=== PATIENT | female | born 1975 | race Caucasian/White ===

== ENCOUNTER 2019-06-17 12:02 | Outpatient (CLI) | payer BC, SELFPAY ==
--- NOTE | ~2019-06-17 | MMUS_ITS ---
EXAMINATION: MM diagnostic mammo unilat LT, US breast LT limited HISTORY: Possible left breast mass on screening mammogram TECHNIQUE: Additional 3-D tomosynthesis images of the left breast were performed and synthetic 2-D im ages were generated. CAD analysis was submitted and interpreted. High resolution limited left breast ultrasound was performed. COMPARISON: 04/29/2019, 09/05/2016 FINDINGS: MAMMOGRAPHIC FINDINGS: There is a 7 mm oval, obscured, low density mass in the posterior third of the lower-outer breast at the 4:00 location 8 cm from the nipple. No associated architectural distortion or suspicious calcific ation are identified. ULTRASOUND: There is a 9 mm x 4 mm cyst at the 4:00 location 4 cm from the nipple corresponding to the mammograph ic finding in question. No suspicious cystic or solid mass is identified. IMPRESSION: 1. No mammographic or sonographic evidence of malignancy. 2. Recommend routine screening mammography in one year. BI-RADS Category 2: Benign finding(s). Reviewed, dictated and finalized at location A. GER RENTAL IMPRESSION: 1. No mammographic or sonographic evidence of malignancy. 2. Recommend routine screening mammography in one year. BI-RADS Category 2: Benign finding(s).
== END 2019-06-17 12:03 | disposition home or self-care (01) ==
PROVIDERS: Visit Provider Obstetrics & Gynecology Gynecology
DX: R92.8 Other abnormal and inconclusive findings on diagnostic imaging of breast (principal)
CPT/HCPCS: 76642; 77065

== ENCOUNTER 2020-07-21 08:05 | Outpatient (CLI) | payer BC, SELFPAY ==
--- NOTE | ~2020-07-21 | MM_ITS ---
EXAMINATION: MM screening [facility] BI w sammy HISTORY: Screening mammogram TECHNIQUE: Craniocaudal and mediolateral oblique 3-D tomosynthesis images were obtained and synthetic 2-D images were generated. CAD analysis was submitted and interpreted. COMPARISON: 06/17/2019, 04/29/2019, 03/16/2017, 09/05/2016 BREAST PARENCHYMAL COMPOSITION: The breasts are heterogeneously dense, which may obscure small masses . FINDINGS: There is no evidence of suspicious mass, calcification, or architectural distortion to sugg est malignancy in either breast. There has been no suspicious interval change. IMPRESSION: 1. No mammographic evidence of malignancy. 2. Recommend routine screening mammography in one year. BI-RADS Category 1: Negative Reviewed, dictated and finalized at location A.
== END 2020-07-21 08:06 | disposition home or self-care (01) ==
PROVIDERS: PCP Obstetrics & Gynecology Gynecology; Visit Provider Obstetrics & Gynecology Gynecology
DX: Z12.31 Encounter for screening mammogram for malignant neoplasm of breast (principal)
CPT/HCPCS: 77063; 77067

== ENCOUNTER 2022-05-14 18:10 | Emergency (ER) | payer BC, SELFPAY ==
--- NOTE | ~2022-05-14 | CT_ITS ---
EXAMINATION: CT brain wo con, CT facial & cervical spine wo DATE: 05/14/2022 19:30 INDICATION: Fall with head injury and laceration to the left eyebrow TECHNIQUE: 1. Computed tomography (CT) of the head was performed without intravenous contrast. Sagittal and melissa nal reconstructions were obtained. The mA was adjusted according to patient size. Iterative reconstru ction technique was employed. The dose-length product was 605.33 mGy-cm. 2. CT of the maxillofacial bones and cervical spine was performed without intravenous contrast. Sagit raysa and coronal reconstructions were obtained. Automated exposure control and iterative reconstructio n technique were employed. The dose-length product was 394.5 mGy-cm. COMPARISON: None. FINDINGS: Head CT: No calvarial fracture. No acute intracranial hemorrhage, acute infarction or abnormal extra axial flu id collection. Ventricles are normal and symmetric. No mass/mass effect. Maxillofacial CT: Mild left supraorbital soft tissue swelling with deep laceration along the left supraorbital rim. Orb its appear otherwise normal. No post septal inflammatory stranding. Normal alignment at the temporoma ndibular joints. No maxillofacial fractures. Specifically the mandible, nasal bones, midline nasal se ptum, zygomatic arches, pterygoid plates and piña of the orbits and paranasal sinuses are all intact . Large mucous retention cyst in the left maxillary sinus. Bilateral mastoid air cells and middle ear cavities are clear. Cervical spine CT: Mild cervicothoracic levocurvature. Straightening of the normal cervical lordosis which is likely pos itional given the presence of a cervical collar. Vertebral body heights are normal. No fracture. Mode rate disc height loss at C5-C6 with small posterior disc osteophyte complex and moderate bilateral un covertebral osteoarthritis which results in mild central canal and mild bilateral neural foraminal st enosis. Remaining disc spaces are normal. Minimal to mild cervical facet osteoarthritis. No other fernanda ral foraminal or central canal stenosis. Multinodular goiter with multiple subcentimeter bilateral th yroid nodules. Cervical soft tissues are otherwise unremarkable. Visualized apices of lungs are clear . IMPRESSION: 1. Normal brain. 2. Deep laceration along the left supraorbital rim. Left orbit is otherwise normal with no calvarial or maxillofacial fractures. 3. Cervical spondylosis moderate at C5-C6, otherwise minimal with no acute osseous abnormality 4. Multinodular goiter. Reviewed, dictated and finalized at location A. 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 Normal brain. 2. Deep laceration along the left supraorbital rim. Left orbit is otherwise nor mal with no calvarial or maxillofacial fractures. 3. Cervical spondylosis moderate at C5-C6, otherwise minimal with no acute osse ous abnormality 4. Multinodular goiter.
[2022-05-14 18:10] VITALS: BP 148/97; PULSE 104; RESP 20; TEMP 37; O2SAT 96
--- NOTE | 2022-05-14 19:16 | ED.GENADULT ---
HPI - General Adult General Chief complaint: Head Injury <Yousif Oconnell MD - Last Filed: 05/15/22 06:18> Stated complaint: head injury/laceration <Yousif Oconnell MD - Last Filed: 05/15/22 06:18> Time Seen by Provider: 05/14/22 18:56 <Yousif Oconnell MD - Last Filed: 05/15/22 06:18> History of Present Illness HPI narrative: 46-year-old female presenting to the emergency department for evaluation of a facial injury. Patient states she was playing soccer when she went to head the ball and came in contact with another player resulting in a laceration above her left eyelid. Patient denies any loss of consciousness. Patient denies any change in vision of the left eye. Injury happened approximately 1 hour prior to arrival. Patient does report some posterior neck pain. Patient denies any associated numbness or weakness. Patient denies any other pain or injury. <Yousif Oconnell MD - Last Filed: 05/15/22 06:18> Related Data Allergies/adverse reactions: Allergies Allergy/AdvReac Type Severity Reaction Status Date / Time Penicillins Allergy Severe Hives / Verified 05/13/12 11:03 Red Face <Yousif Oconnell MD - Last Filed: 05/15/22 06:18> Review of Systems Review of Systems: CONSTITUTIONAL: Denies fever, chills, or sweats. EYES: See HPI ENT: Denies rhinorrhea, congestion, sore throat, or otalgia. CARDIOVASCULAR: Denies chest pain, palpitations, or edema. RESPIRATORY: Denies cough or dyspnea. GASTROINTESTINAL: Denies abdominal pain, nausea, vomiting, or diarrhea. GENITOURINARY: Denies dysuria or hematuria. SKIN: See HPI MUSCULOSKELETAL: Denies back pain, joint pain, or myalgia. NEUROLOGIC: Denies headache, numbness, or weakness. <Yousif Oconnell MD - Last Filed: 05/15/22 06:18> Exam Narrative: APPEARANCE: Well appearing HEAD: Laceration over left eye EYES: PERRLA/EOMI, conjunctivae clear. Stellate laceration over left eye NOSE: Normal no drainage EARS:TMS clear with good light reflex. THROAT: Pharynx clear, no exudate. NECK: Supple. No adenopathy, no masses. Tenderness of the cervical spine. RESPIRATORY: Airway patent, respirations nonlabored. Clear to auscultation bilaterally, no rales, rhonchi, wheezing. CARDIOVASCULAR: Regular rate and rhythm without murmurs rubs or gallops. ABDOMINAL: Soft, nontender, nondistended, normal bowel sounds MUSCULOSKELETAL: Moves all extremities. Strength/ROM intact, No edema, No calf tenderness. NEURO: Alert. Cranial nerves II through XII intact. Grossly intact SKIN: Warm, dry. Normal Color <Yousif Oconnell MD - Last Filed: 05/15/22 06:18> Course Course Emergency Course: CT head, CT facial bones and cervical spine were ordered to rule out severe injury. No facial fractures, normal brain and normal cervical spine. Laceration was repaired by Jessica Morillo. Patient was updated on the results of the CTs and plan for treatment at home. Patient was started on a short course of antibiotic due to the depth of the laceration. Patient's tetanus was updated. All questions and concerns were addressed. Patient was well-appearing on discharge. Differential diagnosis that were considered but were ruled out by imaging include facial fracture, intracranial injury, cervical spine fracture, orbital fracture, orbital entrapment. <Yousif Oconnell MD - Last Filed: 05/15/22 06:18> Vital Signs Vital signs: Vital Signs Temperature 98.6 F 05/14/22 18:10 Pulse Rate 104 H 05/14/22 18:10 Respiratory Rate 20 05/14/22 18:10 Blood Pressure 148/97 H 05/14/22 18:10 Pulse Oximetry 96 05/14/22 18:10 Oxygen Delivery Room Air 05/14/22 18:10 Temperature 98.6 F 05/14/22 18:10 Pulse Rate 104 H 05/14/22 18:10 Respiratory Rate 20 05/14/22 18:10 Blood Pressure 148/97 H 05/14/22 18:10 Pulse Oximetry 96 05/14/22 18:10 Oxygen Delivery Room Air 05/14/22 18:10 <Yousif Oconnell MD - Last Filed: 05/15/22 06:18>
[2022-05-14] MEDS: HYDROcodone/acetaminophen (*CRX) 5-325 MG TABLET 1 TAB PO (19:40)
[2022-05-14] MEDS: TETANUS,DIPHTHERIA,AC PERTUSSIS ADULT (0.5 ML) BOOSTRIX IM (20:52)
[2022-05-14] MEDS: CLINDAMYCIN HCL 150 MG CAP PO (20:53)
== END 2022-05-14 21:00 | disposition home or self-care (01) ==
PROVIDERS: Emergency Provider Emergency Medicine; PCP Obstetrics & Gynecology Gynecology
DX: S01.112A Laceration without foreign body of left eyelid and periocular area, initial encounter (principal); S09.90XA Unspecified injury of head, initial encounter; Z23 Encounter for immunization; M47.812 Spondylosis without myelopathy or radiculopathy, cervical region; E04.2 Nontoxic multinodular goiter; W51.XXXA Accidental striking against or bumped into by another person, initial encounter; Y93.66 Activity, soccer
CPT/HCPCS: 12013; 70450; 70486; 72125; 90471; 90715; 99284; A9270; L0140

== ENCOUNTER 2022-11-20 15:08 | Outpatient (CLI) | payer BC, SELFPAY ==
--- NOTE | ~2022-11-20 | MM_ITS ---
EXAMINATION: MM screening [facility] BI w sammy HISTORY: Screening mammogram TECHNIQUE: Craniocaudal and mediolateral oblique 3-D tomosynthesis images were obtained and synthetic 2-D images were generated. CAD analysis was submitted and interpreted. COMPARISON: 07/21/2020, 06/17/2019, 04/29/2019 BREAST PARENCHYMAL COMPOSITION: The breasts are heterogeneously dense, which may obscure small masses . FINDINGS: No suspicious mass, calcification, or architectural distortion are identified in either deyvi ast to suggest malignancy. There has been no suspicious interval change. IMPRESSION: 1. No mammographic evidence of malignancy. 2. Recommend routine screening mammography in one year. BI-RADS Category 1: Negative Reviewed, dictated and finalized at location A.
== END 2022-11-20 15:09 | disposition home or self-care (01) ==
PROVIDERS: PCP Obstetrics & Gynecology Gynecology; Visit Provider Advanced Practice Midwife
DX: Z12.31 Encounter for screening mammogram for malignant neoplasm of breast (principal)
CPT/HCPCS: 77063; 77067

== ENCOUNTER 2023-01-15 00:27 | Day surgery (SDC) | payer BC, SELFPAY ==
[2023-01-09 10:22] VITALS: BMI 30.4
--- NOTE | 2023-01-09 10:28 | PC.NURSE ---
Report to the Outpatient Waiting Room, entrance under the green pavilion located off [facility], at time 0815__ on date __01/15/23. Planned Procedure Time: __1015 . Time changes happen often and if your time is changed the preop area will call you the afternoon before. - You and your visitor will be asked to self-screen and do not enter if you have any COVID symptoms. - A mask is optional within the hospital at this time. Patients may have clear liquids (water, carbonated beverages, clear teas, apple juice) until 3 hours prior to surgery with a maximum of 20 ounces. - No food from midnight until time of surgery - Infants may have breast milk until 4 hours before surgery, formula 6 hours prior to surgery. - Children will be allowed to drink immediately following surgery. If applicable, please bring a bottle or sippy cup to assist with drinking. Juice, water, soda, and popsicles are readily available. For infants on formula, please bring formula the day of surgery. Pacifiers are allowed. Take the following medications with a SIP of water the morning of surgery: NONE DO NOT STOP ANY OF YOUR OTHER PRESCRIPTION MEDICATIONS PRIOR TO SURGERY ?EXCEPT THE FOLLOWING Medications to discontinue per physician NONE Date to take last dose Please no make-up, nail german, hairspray, perfume, deodorant, or body powder the day of surgery. No jewelry (including any body piercings) or valuables the day of surgery, leave them at home. Please take a shower or bath the night before, or the morning of, surgery with an antibacterial soap. Wear comfortable, loose fitting clothing. Children are encouraged to wear pajamas. - Jewelry must be removed prior to entering the operating room. Rings and piercings that are not removed may be cut off. - The hospital will not accept responsibility for valuables. - Please leave all valuables, including medications, at home the day of surgery. If you are going home after surgery, a licensed courier driver must drive you home. - NO public transportation without another adult if you receive anesthesia. - We recommend that an adult stay with you for 24 hours following discharge. - We also recommend that you do not drive, make important decision, drink alcoholic beverages, or take any drugs that were not prescribed by your health care provider for at least 24 hours after your discharge time. For Pediatric surgeries, we recommend two adults accompany the child home. Follow any additional instructions given to you from your surgeon. If you or anyone in your household have experienced Covid symptoms in the past week, please notify your surgeon or the nurse liaison at the phone number below for possible testing. Telephone instructions given to PATIENT_and asked if any additional questions and then verbalized understanding. Patient advised to call surgeon office or pre surgery nurse liaison [phone] if any additional questions.
--- NOTE | 2023-01-15 07:17 | WPDHPUPDATE1 ---
History and Physical Update Update Date/Time: 01/15/23 07:17 History and Physical has been reviewed, including an updated exam of the patient. There are NO changes in the patient's condition. Risks, benefits, and alternatives have been discussed and questions answered. Patient agrees to proceed with procedure.
--- NOTE | 2023-01-15 07:17 | PM.HPGS ---
History of Present Illness History of Present Illness Consent: Risks, benefits, and alternatives have been discussed and questions answered. Patient agrees to proceed with procedure. 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 Pap smear reading was atypical squamous cells cannot exclude high-grade lesion with positive HPV 16. Colposcopy was performed and the ectocervix appeared normal. However with the severe reading on endocervical curettings it was recommended to proceed with cervical conization followed by endocervical curetting. Risks of infection, bleeding, injury to surrounding tissue, and possible pathology are reviewed with the patient. The patient voices understanding and agrees to proceed. Review of Systems Review of Systems: All systems reviewed & are unremarkable except as noted in HPI and below (History of present) PMFSH Past Medical History Medical History (Updated 01/15/23 @ 07:21 by Dagmar Uribe MD) (normal spontaneous vaginal delivery) X4 Surgical History Surgical History (Updated 01/15/23 @ 07:20 by Dagmar Uribe MD) History of D&C 2007 for spontaneous History of loop electrical excision procedure (LEEP) 1993 History of repair of ACL Left 1994 Social History Social History Smoking status: Never smoker Alcohol intake: current Drinks per week: 1 Substance use: never Meds Home Medications and Allergies Home Medications Medication Instructions Recorded Confirmed Type No Home Medications 01/09/23 01/09/23 History Allergies Allergy/AdvReac Type Severity Reaction Status Date / Time Penicillins Allergy Severe Hives / Verified 01/09/23 10:21 Red Face Exam Const: General: healthy appearing and alert Orientation/consciousness: patient oriented x3 Resp: Effort & Inspection: normal respiratory effort GI: GI Palp: Yes Soft to palpation, No Tenderness to palpation present (GI) and No Palpable mass present : External Female Exam: normal external appearance Speculum Exam - Vagina: normal appearance of the vagina and normal vaginal discharge Speculum Exam - Cervix: normal appearance of the cervix Bimanual exam- vagina & uterus: uterine size normal and consistency normal Bimanual Exam- Adnexa, other: normal adnexae and No adnexal tenderness Neuro: General: patient oriented x3 Assessment and Plan Assessment and plan (1) Adenocarcinoma in situ: Code(s): D09.9 - Carcinoma in situ, unspecified Status: Acute Assessment and Plan: Plan to proceed with conization of the cervix followed by endocervical curettings (2) Severe cervical dysplasia: Code(s): D06.9 - Carcinoma in situ of cervix, unspecified Status: Acute
[2023-01-15] MEDS: LACTATED RINGERS 1,000 ML 30 ML IV CONT (08:00)
[2023-01-15] MEDS: ACETAMINOPHEN 500 MG TABLET 1000 MG PO (08:15)
--- NOTE | 2023-01-15 08:28 | P.PNAN_ITS ---
Anes - Initial Pre Proc Eval Procedure: Operation Date: 01/15/23 09:30 Proposed Procedures p Cervical Cone Biopsy with Endocervical Curettage - Dagmar Uribe MD Date/Time: 01/15/23 08:28 Surgeon: Dgamar Uribe MD Pre Op Diagnosis: adenoma carcinoma in situ Patient Data Age: 47 Gender: F Height: 1.7 m Weight: 88 kg Allergies Allergy/AdvReac Type Severity Reaction Status Date / Time Penicillins Allergy Severe Hives / Verified 01/09/23 10:21 Red Face Home Medications Medication Instructions Recorded Confirmed Type No Home Medications 01/09/23 01/09/23 History Patient hx anesthesia problems: none Family hx anesthesia problems: none Results Review: All pre-operative results and documents have been reviewed as part of the pre- operative evaluation. PMFSH Past Medical History Medical History (Updated 01/15/23 @ 07:21 by Dagmar Uribe MD) (normal spontaneous vaginal delivery) X4 Surgical History Surgical History (Updated 01/15/23 @ 07:20 by Dagmar Uribe MD) History of D&C 2007 for spontaneous History of loop electrical excision procedure (LEEP) 1993 History of repair of ACL Left 1994 Social History Social History Smoking status: Never smoker Alcohol intake: current Drinks per week: 1 Substance use: never Anes - Eval Final PreProcedure Day of Procedure 01/15/23 08:28 Patient weight: obese Heart: regular rate and rhythm Lungs: clear to auscultation Airway: Mallampati scale class II Neurological: alert and oriented Last oral intake: >/= 8 hours ASA classification: II Emergent: no Anesthetic plan: proceed Anesthesia type and monitoring: general LMA and standard monitoring Results Review: All pre-operative results and documents have been reviewed as part of the pre- operative evaluation. Informed Consent: The patient's anesthetic plan and its attendant risks and benefits were discussed with the patient/family/POA. Questions were solicited and answers provided to the satisfaction of the patient/family/POA.
[2023-01-15 08:30] VITALS: BP 129/71; PULSE 61; RESP 18; TEMP 36.8; O2SAT 100
[2023-01-15] MEDS: LIDO 1%/EPINEPHRINE 1:100,000 20 ML VIAL 10 ML INFILTRATE (09:41)
--- NOTE | 2023-01-15 10:00 | W.PM.PROC2 ---
Procedure Note - Detailed Date of Procedure 01/15/23 Pre-op Diagnosis adenomacarcinoma in situ and severe dysplasia on endocervical curettings Post-op Diagnosis Same Procedure Performed cold knife conization and endocervical curetting Surgeon Dagmar Uribe MD Anesthesia MAC and Local Findings narrow cervix grossly normal-appearing Description of Procedure The patient is taken to the operating room and placed under anesthesia in the dorsal lithotomy position. She was prepped and draped in the usual sterile fashion. A bivalve speculum was placed in the vagina and the cervix is grasped at 12:00 p.m. with a long pickup. A stay suture was placed at 3:00 of 0 Vicryl and a 2nd suture placed at 9:00. The cervix is injected in each quadrant with 1% lidocaine with epinephrine. The 11 blade on the angled handle was used to perform a cold knife conization to the depth of the blade. The base of the cone is amputated using Prince scissors. The Kavoribisan curette is then used to perform an endocervical curetting. Endocervical brush was used to obtain the sample after curetting was performed. Bovie cautery is applied to the bleeding vessels and the cone bed. Gelfoam is rolled and placed in the cone bed and tied in place using the stay sutures. Good hemostasis is noted. All instruments are removed and the patient was awakened from anesthesia and taken to recovery in stable condition. Sponge, needle, and instrument counts are correct per the OR staff. Estimated Blood Loss 5 Drains No Packing Yes ( Gelfoam was left in place in the cervix) Pathology Yes ( cone marked at 12:00 p.m. with suture and endocervical curettings) Complications No immediate complications Condition Stable Disposition PACU
[2023-01-15 10:05] VITALS: BP 96/53; PULSE 55; RESP 20; O2SAT 98
[2023-01-15 10:35] VITALS: BP 104/60; PULSE 55; RESP 20
[2023-01-15 10:50] VITALS: BP 105/71; PULSE 70; RESP 20
== END 2023-01-15 11:00 | disposition home or self-care (01) ==
PROVIDERS: Visit Provider Obstetrics & Gynecology Gynecology
PROC: 0UB97ZZ Excision of Uterus, Via Natural or Artificial Opening (ICD-10-PCS; CPT 57520; principal; 2023-01-15 09:30)
DX: R87.612 Low grade squamous intraepithelial lesion on cytologic smear of cervix (LGSIL) (principal); E66.9 Obesity, unspecified; Z68.29 Body mass index [BMI] 29.0-29.9, adult
CPT/HCPCS: 57520; 88305; 88307; A9270; J2250; J2704; J3010; J7120